=== PATIENT | female | born 1965 | race Caucasian/White ===

== ENCOUNTER → 2018-08-19 | Outpatient (REF) ==
[2018-08-19 18:32] LABS: INFLUENZA A AMPLIFICATION NEGATIVE (NEGATIVE); INFLUENZA B AMPLIFICATION NEGATIVE (NEGATIVE)
[2018-08-19 18:33] LABS: INFLUENZA A AMPLIFICATION NEGATIVE (NEGATIVE); INFLUENZA B AMPLIFICATION NEGATIVE (NEGATIVE)
== END ==
LOC: M LAB 14:23
DX: Z00.00 Encounter for general adult medical examination without abnormal findings (principal)